=== PATIENT | male | born 1975 | race Caucasian/White ===

== ENCOUNTER 2022-01-28 19:16 | Emergency (ER) | payer OTHER ==
[2022-01-28 19:55] LABS: BASOPHIL 0.3 % (0-2); EOSINOPHIL 1.6 % (0-5); HCT 50.8 % (42.0-52.0); HGB 17.6 g/dl (13.2-18.0); LYMPHOCYTE 20.2 % (15-48); MCH 30.7 pg (25.0-31.0); MCHC 34.6 g/dL (32.0-36.0); MCV 88.5 fL (78.0-100.0); MONOCYTE 8.4 % (0-12); MPV 9.5 fL (6.0-9.5); NEUTROPHIL 69.4 % (41-80); NRBC 0; PLT 186 K/uL (150-400); RBC 5.74 M/uL (4.70-6.00); RDW 12.3 % (11.5-14.0); WBC 6.8 K/uL (4.0-10.5)
[2022-01-28 20:12] LABS: ALBUMIN 3.9 g/dL (3.4-5.0); BILIRUBIN - TOTAL 0.5 mg/dL (0.2-1.0); CREATININE 1.07 mg/dL (0.67-1.17); GLOBULIN (CALCULATION) 3.7 g/dL; POTASSIUM 3.8 mmol/L (3.5-5.1); TOTAL PROTEIN 7.6 g/dL (6.4-8.2)
[2022-01-28 20:21] LABS: INFLUENZA A NAA NEGATIVE (NEGATIVE)
[2022-01-28 20:24] LABS: CORONAVIRUS 2019 SARS-COV-2 POSITIVE (NEGATIVE)
[2022-01-28] MEDS ORDERED: PREDNISONE 20MG20 MG PO (21:33)
[2022-01-28] MEDS ORDERED: PHENERGAN25 M1 PO (21:33)
[2022-01-28] MEDS ORDERED: AZITHROMYCIN250 MG PO (21:33)
[2022-01-28] MEDS ORDERED: ONDANSETRON ODT4 MG PO (21:33)
== END 2022-01-28 23:07 | disposition home or self-care (01) ==
LOC: FER 19:16
PROVIDERS: Internal Medicine
DX: U07.1 COVID-19 (principal); F17.210 Nicotine dependence, cigarettes, uncomplicated; Z28.310 Unvaccinated for COVID-19
CPT/HCPCS: 36415; 71045; 71275; 80053; 84145; 85025; 85379; 94640; 94664; J1100; J1885; J2550; J3475; J7120; Q9967; U0002